=== PATIENT | female | born 1970 | race Native Hawaiian/Other Pacific Islander ===

== ENCOUNTER 2017-09-04 14:31 | Outpatient (CLI) | payer BC | END 2017-09-04 21:08 | disposition home or self-care (01) | LOC: US 14:31 | DX: E03.8 Other specified hypothyroidism (principal); E04.8 Other specified nontoxic goiter ==

== ENCOUNTER 2017-09-06 06:13 | Outpatient (CLI) | payer BC ==
[2017-09-06 07:11] LABS: POTASSIUM 3.9 mmol/L (3.6-5.2); SODIUM 136 mmol/L (136-145)
== END 2017-09-06 22:51 | disposition home or self-care (01) ==
LOC: LABW 06:13
PROVIDERS: Internal Medicine Endocrinology, Diabetes & Metabolism
DX: E03.8 Other specified hypothyroidism (principal); I10 Essential (primary) hypertension; E78.4 Other hyperlipidemia
CPT/HCPCS: 36415; 80053; 80061; 84439; 84443; 84445; 86376; 86800

== ENCOUNTER 2018-10-16 03:47 | Emergency (ER) | payer BC ==
[~2018-10-16] VITALS: Ht 157.5 cm; Wt 954.8 kg
[2018-10-16 03:50] VITALS: TEMP 97.6
[2018-10-16 04:48] LABS: PLATELET COUNT 286 K/uL (152-353)
[2018-10-16 04:59] LABS: POTASSIUM 3.3 mmol/L (3.6-5.2); SODIUM 140 mmol/L (136-145)
[2018-10-16 08:45] VITALS: BP 103/67
== END 2018-10-16 08:55 | disposition home or self-care (01) ==
LOC: ED 03:47
PROVIDERS: Emergency Medicine
DX: R07.89 Other chest pain (principal); I10 Essential (primary) hypertension; R00.1 Bradycardia, unspecified
CPT/HCPCS: 36415; 80053; 82550; 82553; 84484; 85027; 85379; 93005; 96374; 99284; J2270

== ENCOUNTER 2019-04-22 07:12 | Outpatient (CLI) | payer BC | END 2019-04-22 22:08 | disposition home or self-care (01) | LOC: LABW 07:12 | PROVIDERS: Internal Medicine Endocrinology, Diabetes & Metabolism | DX: E03.9 Hypothyroidism, unspecified (principal); R76.8 Other specified abnormal immunological findings in serum; E04.1 Nontoxic single thyroid nodule; I10 Essential (primary) hypertension; E66.9 Obesity, unspecified | CPT/HCPCS: 36415; 80061; 82306; 84439; 84443 ==

== ENCOUNTER 2019-06-16 13:07 | Outpatient (CLI) | payer BC | END 2019-06-16 19:15 | disposition home or self-care (01) | LOC: LABW 13:07 | DX: F98.8 Other specified behavioral and emotional disorders with onset usually occurring in childhood and adolescence (principal); R19.7 Diarrhea, unspecified; R11.2 Nausea with vomiting, unspecified; G47.00 Insomnia, unspecified; I10 Essential (primary) hypertension | CPT/HCPCS: 82272; 82705; 83630; 87015; 87045; 87324; 87328; 87329; 87449; 87899 ==

== ENCOUNTER 2022-04-10 07:24 | Outpatient (CLI) | payer BC ==
[2022-04-10 07:54] LABS: PLATELET COUNT 299 K/uL (152-353)
== END 2022-04-10 20:43 | disposition home or self-care (01) ==
LOC: LABW 07:24
PROVIDERS: ATTEND Registered Nurse
DX: K52.9 Noninfective gastroenteritis and colitis, unspecified (principal); R10.13 Epigastric pain; R19.5 Other fecal abnormalities; Z80.0 Family history of malignant neoplasm of digestive organs; D64.9 Anemia, unspecified; E56.9 Vitamin deficiency, unspecified
CPT/HCPCS: 36415; 80053; 82150; 82306; 82607; 82656; 82705; 82728; 82784; 83516; 83540; 83630; 83690; 84443; 85027; 86140; 87015; 87045; 87324; 87328; 87329; 87338; 87449; 87899

== ENCOUNTER 2022-06-13 16:05 | Outpatient (CLI) | payer BC | END 2022-06-13 19:00 | disposition home or self-care (01) | LOC: LABW 16:05 | PROVIDERS: ATTEND Nurse Practitioner Family | DX: R09.81 Nasal congestion (principal) | CPT/HCPCS: 87502 ==